=== PATIENT | female | born 1960 | race Caucasian/White ===

== ENCOUNTER 2021-03-22 15:02 | Emergency (ER) | payer BC ==
--- NOTE | 2021-03-22 16:07 | RAD REPORT ---
EXAM DESCRIPTION: RAD - Chest Single View - 03/22/2021 4:00 pm CLINICAL HISTORY: CHEST PAIN Chest pain. COMPARISON: No comparisons FINDINGS: Portable technique limits examination quality. The lungs are grossly clear. The heart is normal in size. No displaced fractures. IMPRESSION: No acute intrathoracic process suspected.
[2021-03-22 16:14] LABS: Absolute Lymphocytes (CBC) 1.2 K/uL (0.7-4.9); Basophils % 0.8 % (0-1.3); Hematocrit 42.6 % (36.0-45.0); Lymphocytes % 18.6 % (15.3-44.8); MPV 10.6 fL (7.6-11.3); RBC Red Blood Cell Count 4.84 M/uL (3.86-4.86)
[2021-03-22 16:20] LABS: Protime INR 0.99
[2021-03-22] MEDS ORDERED: NA CHLORIDE 0.9% 1,000 ML ONE (16:32)
[2021-03-22 16:40] LABS: ALT/SGPT 31 U/L (12-78); AST/SGOT 9 U/L (15-37); Albumin 4.1 g/dL (3.4-5.0); Alkaline Phosphatase 96 U/L (45-117); BUN Blood Urea Nitrogen 16 mg/dL (7-18); Bicarbonate 25 mmol/L (21-32); Bilirubin Direct < 0.1 mg/dL (0-0.2); Bilirubin Total 0.4 mg/dL (0.2-1.0); Glucose Level 98 mg/dL (74-106); Magnesium 2.3 mg/dL (1.8-2.4); NT PRO-BNP 36 pg/mL (<125); Potassium 3.8 mmol/L (3.5-5.1); Protein, Total 7.8 g/dL (6.4-8.2); Sodium Level 143 mmol/L (136-145); Troponin (Emerg Dept Use Only) < 0.02 ng/mL (0.0-0.045)
[2021-03-22 16:53] LABS: Urine Bacteria <20 /HPF (<20); Urine RBC <5 /HPF (NONE SEEN)
--- NOTE | 2021-03-22 17:15 | RAD REPORT ---
EXAM DESCRIPTION: CT - Head Brain Wo Cont - 03/22/2021 5:03 pm CLINICAL HISTORY: DIZZINESS Headache, drowsiness COMPARISON: No comparisons TECHNIQUE: All CT scans are performed using dose optimization technique as appropriate and may inclu de automated exposure control or mA/KV adjustment according to patient size. FINDINGS: No intracranial hemorrhage, hydrocephalus or extra-axial fluid collection.No areas of brai n edema or evidence of midline shift. The paranasal sinuses and mastoids are clear. The calvarium is intact. IMPRESSION: No acute intracranial abnormality.
[2021-03-22 19:09] LABS: Thyroid Stimulating Hormone 1.21 uIU/mL (0.360-3.740)
[2021-03-22 19:24] LABS: T3 Free 2.97 pg/mL (2.18-3.98)
--- NOTE | 2021-03-22 20:54 | EDPHYS ---
Physician Documentation [facility] Name: Salena Nichols Age: 60 yrs Sex: Female : 1960 Arrival Date: 03/22/2021 Time: 15:03 Bed 13 Private MD: ED Physician Kenia Moseley HPI: 03/22 15:35 This 60 yrs old Female presents to ER via Ambulatory with complaints of Chest cp Pain. 15:35 The patient or guardian reports chest pain that is located primarily in the anterior cp chest wall, bilaterally. 15:35 Onset: this morning. The patient presents with a history of heart racing. Context: The cp symptoms occur with light activity. Onset: The symptoms/episode began/occurred this morning. Duration: The patient or guardian reports multiple episodes, that are intermittent, with no pattern. The pain does not radiate. Associated signs and symptoms: Pertinent positives: dizziness, lightheaded. 15:35 Patient reports she was outside standing talking with a neighbor when she felt like her cp heart was racing, she became lightheaded and dizziness and started having tightness in her chest. Patient reports she went into the house and symptoms improved, but continues to have chest tightness and feeling like heart is racing. Historical: - Allergies: 15:53 Codeine; vg1 15:53 Hydrocodone-Acetaminophen; vg1 15:53 Steroids; vg1 - Home Meds: 15:53 None [Active]; vg1 - PMHx: 15:53 None; vg1 - PSHx: 15:53 Cholecystectomy; section; Hernia repair; Hysterectomy; vg1 - Immunization history:: Client reports receiving the 2nd dose of the Covid vaccine. - Social history:: Smoking status: Patient denies any tobacco usage or history of. ROS: 15:40 Constitutional: Negative for body aches, chills, fever, poor PO intake. cp 15:40 Cardiovascular: Positive for chest pain, palpitations, Negative for edema. cp 15:40 Eyes: Negative for injury, pain, redness, and discharge. cp 15:40 ENT: Negative for ear pain, sore throat, difficulty swallowing, difficulty handling secretions. 15:40 Respiratory: Negative for cough, shortness of breath, wheezing. 15:40 Abdomen/GI: Negative for abdominal pain, nausea, vomiting, and diarrhea, black/tarry stool, rectal bleeding. 15:40 Back: Negative for pain at rest, pain with movement. 15:40 : Negative for urinary symptoms. 15:40 Skin: Negative for cellulitis, rash. 15:40 Neuro: Positive for dizziness, Negative for altered mental status, headache, numbness, speech changes, syncope, weakness. 15:40 All other systems are negative. Exam: 15:40 Constitutional: The patient appears in no acute distress, alert, awake, cp non-diaphoretic, non-toxic, well developed, well nourished, anxious. 15:40 Head/Face: Normocephalic, atraumatic. cp 15:40 Eyes: Periorbital structures: appear normal, Pupils: equal, round, and reactive to light and accomodation, Extraocular movements: intact throughout, Conjunctiva: normal, no exudate, no injection, Sclera: no appreciated abnormality, Lids and lashes: appear normal, bilaterally. 15:40 ENT: External ear(s): are unremarkable, Nose: is normal, Mouth: Lips: moist, Oral mucosa: pink and intact, moist, Posterior pharynx: Airway: no evidence of obstruction, patent. 15:40 Neck: ROM/movement: is normal, is supple, without pain, no range of motions limitations, no nuchal rigidity. 15:40 Chest/axilla: Inspection: normal, Palpation: is normal, no crepitus, no tenderness. 15:40 Cardiovascular: Rate: normal, Rhythm: regular, Heart sounds: murmur, not appreciated, Edema: is not appreciated, JVD: is not appreciated. 15:40 Respiratory: the patient does not display signs of respiratory distress, Respirations: normal, no use of accessory muscles, no retractions, labored breathing, is not present, Breath sounds: are clear throughout, no decreased breath sounds, no stridor, no wheezing. 15:40 Abdomen/GI: Inspection: abdomen appears normal, Palpation: abdomen is soft and non-tender, in all quadrants. 15:40 Back: pain, is absent, ROM is normal. 15:40 Skin: no rash present. 15:40 Neuro: Orientation: to person, place \T\ time. Mentation: is normal, Cerebellar function: is grossly normal, Motor: moves all fours, strength is normal, Sensation: is normal. 16:10 ECG was reviewed by the Attending Physician. Vital Signs: 15:52 BP 126 / 70; Pulse 71; Resp 16; Temp 98.1; Pulse Ox 100% ; Weight 78.93 kg; Height 5 vg1 ft. 2 in. (157.48 cm); Pain 3/10; 16:51 BP 126 / 68 Supine; Pulse 65; Pulse Ox 99% on R/A; kd3 16:51 BP 146 / 62 Sitting; Pulse 88; Pulse Ox 98% on R/A; kd3 16:51 BP 138 / 78 Standing; Pulse 85; Pulse Ox 99% on R/A; kd3 17:25 BP 159 / 69; Pulse 68; Resp 16; Pulse Ox 98% on R/A; kd3 18:15 BP 131 / 68; Pulse 69; Resp 17; Pulse Ox 99% on R/A; jt3 19:31 BP 129 / 72; Pulse 70; Resp 18; Pulse Ox 99% on R/A; ld1 20:26 BP 131 / 64; Pulse 55; Resp 18; Pulse Ox 100% on R/A; ld1 15:52 Body Mass Index 31.82 (78.93 kg, 157.48 cm) vg1 MDM: 15:50 Patient medically screened. cp 16:00 Differential diagnosis: abnormal EKG, acute myocardial infarction, acute pericarditis, cp anxiety, chest wall pain, arrythmia, dehydration, stress disorder, pericarditis, pleurisy, pneumonia, pneumothorax. 20:52 Data reviewed: vital signs, nurses notes, lab test result(s), EKG, radiologic studies, cp CT scan, plain films. 20:52 Test interpretation: by ED physician or midlevel provider: ECG, plain radiologic cp studies. Counseling: I had a detailed discussion with the patient and/or guardian regarding: the historical points, exam findings, and any diagnostic results supporting the discharge/admit diagnosis, lab results, radiology results, the need for outpatient follow up, a welder apprentice arc, to return to the emergency department if symptoms worsen or persist or if there are any questions or concerns that arise at home. 03/22 15:30 Order name: Basic Metabolic Panel; Complete Time: 18:22 ma2 03/22 19:57 Interpretation: Normal except: CL 111; GFR 46. cp 03/22 15:30 Order name: CBC with Diff; Complete Time: 16:23 ma2 03/22 15:30 Order name: LFT's; Complete Time: 18:22 ma2 03/22 15:30 Order name: Magnesium; Complete Time: 18:22 ma2 03/22 15:30 Order name: NT PRO-BNP; Complete Time: 18:22 ma2 03/22 15:30 Order name: PT-INR; Complete Time: 16:23 ma2 03/22 15:30 Order name: Troponin (emerg Dept Use Only); Complete Time: 18:22 ma2 03/22 15:30 Order name: XRAY Chest (1 view); Complete Time: 16:23 ma2 03/22 15:57 Order name: Urine Microscopic Only cp 03/22 15:57 Order name: Urine Microscopic Only; Complete Time: 18:22 EDMS 03/22 16:53 Order name: TSH; Complete Time: 19:57 cp 03/22 16:53 Order name: T3 Free; Complete Time: 19:57 cp 03/22 19:01 Order name: Troponin (emerg Dept Use Only) cp 03/22 15:30 Order name: EKG; Complete Time: 15:31 ma2 03/22 15:30 Order name: Cardiac monitoring; Complete Time: 16:24 ma2 03/22 15:30 Order name: EKG - Nurse/Tech; Complete Time: 16:24 ma2 03/22 15:30 Order name: IV Saline Lock; Complete Time: 16:24 ma2 03/22 15:30 Order name: Labs collected and sent; Complete Time: 16:24 ma2 03/22 15:30 Order name: O2 Per Protocol; Complete Time: 16:24 ma2 03/22 15:30 Order name: O2 Sat Monitoring; Complete Time: 16:24 ma2 03/22 15:57 Order name: Orthostatics; Complete Time: 16:53 cp 03/22 16:23 Order name: CT Head Brain wo Cont; Complete Time: 18:22 cp EC:10 Rate is 68 beats/min. Rhythm is regular. NV interval is normal. QRS interval is normal. cp QT interval is normal. T waves are Inverted in lead aVR. Interpreted by me. Reviewed by me. Administered Medications: 16:45 Drug: NS 0.9% 1000 ml Route: IV; Rate: 1 bolus; Site: right antecubital; kd3 Disposition Summary: 03/22/21 20:53 Discharge Ordered Location: Home cp Problem: new cp Symptoms: have improved cp Condition: Stable cp Diagnosis - Palpitations cp - Chest pain, unspecified cp - Dizziness and giddiness cp Followup: cp - With: Yohan León MD - When: 2 - 3 days - Reason: Recheck today's complaints Discharge Instructions: - Discharge Summary Sheet cp - Nonspecific Chest Pain, Adult cp - Dizziness cp - Palpitations cp - Aspirin and Your Heart cp Forms: - Medication Reconciliation Form cp - Thank You Letter cp - Antibiotic Education cp - Prescription Opioid Use cp Addendum: 03/27/2021 05:29 Co-signature as Attending Physician, Kenia Moseley MD Attestation: The patient's m a2 history, exam findings, diagnostics, and a summary of any interventions or procedures was reviewed in detail with Kenia Moseley MD. Signatures: Dispatcher [employer] EDMS Vinod Navarro PA PA cp Alzahri, Mohammad, MD MD ma2 Liz Laws RN RN vg1 Susana Pro kd3 Corrections: (The following items were deleted from the chart) 03/22 15:54 15:53 Allergies: No Known Allergies; vg1 vg1 15:57 15:57 UA MICROSCOPIC+U.LAB.BRZ ordered. EDWV EDMS
--- NOTE | 2021-03-22 20:54 | ER ---
Nurse's Notes [facility] Name: Salena Nichols Age: 60 yrs Sex: Female : 1960 Arrival Date: 03/22/2021 Time: 15:03 Bed 13 Private MD: Diagnosis: Palpitations;Chest pain, unspecified;Dizziness and giddiness Presentation: 03/22 15:52 Chief complaint: Patient states: Chest pain began today around 1230. Pt states pain vg1 radiates to Left arm, states Left arm tingling. Also stated 'heart feels like it is fluttering', shortness of breath, mid back pain and lightheaded. Denies NVD. Coronavirus screen: Vaccine status: Patient reports receiving the 2nd dose of the covid vaccine. Client denies travel out of the [place] in the last 14 days. Ebola Screen: Patient negative for fever greater than or equal to 101.5 degrees Fahrenheit, and additional compatible Ebola Virus Disease symptoms. Initial Sepsis Screen: Does the patient meet any 2 criteria? No. Patient's initial sepsis screen is negative. Does the patient have a suspected source of infection? No. Patient's initial sepsis screen is negative. Risk Assessment: Do you want to hurt yourself or someone else? Patient reports no desire to harm self or others. Onset of symptoms was March 22, 2021. 15:52 Method Of Arrival: Ambulatory vg1 15:52 Acuity: TURNER 3 vg1 Triage Assessment: 15:53 General: Appears in no apparent distress. uncomfortable, Behavior is calm, cooperative. vg1 Pain: Complains of pain in back and chest. Cardiovascular: Reports lightheadedness, palpitations, shortness of breath, Patient's skin is warm and dry. Chest pain radiates to left arm(s) back. Historical: - Allergies: 15:53 Codeine; vg1 15:53 Hydrocodone-Acetaminophen; vg1 15:53 Steroids; vg1 - Home Meds: 15:53 None [Active]; vg1 - PMHx: 15:53 None; vg1 - PSHx: 15:53 Cholecystectomy; section; Hernia repair; Hysterectomy; vg1 - Immunization history:: Client reports receiving the 2nd dose of the Covid vaccine. - Social history:: Smoking status: Patient denies any tobacco usage or history of. Screenin:05 Abuse screen: Denies threats or abuse. Denies injuries from another. Nutritional kd3 screening: No deficits noted. Tuberculosis screening: No symptoms or risk factors identified. Fall Risk None identified. IV access (20 points). Assessment: 17:01 Pain: Denies pain. kd3 17:01 Cardiovascular: Reports chest pain, lightheadedness, shortness of breath, since this kd3 morning Rhythm is sinus rhythm. 17:04 Neuro: No deficits noted. Respiratory: Reports shortness of breath on exertion pt kd3 currently denies sob o2 maintained above 90 on RA. 19:31 Reassessment: Patient appears in no apparent distress at this time. Patient and/or ld1 family updated on plan of care and expected duration. Pain level reassessed. Patient is alert, oriented x 3, equal unlabored respirations, skin warm/dry/pink. 20:26 Reassessment: Patient appears in no apparent distress at this time. Patient and/or ld1 family updated on plan of care and expected duration. Pain level reassessed. Patient is alert, oriented x 3, equal unlabored respirations, skin warm/dry/pink. Patient denies pain at this time. Vital Signs: 15:52 BP 126 / 70; Pulse 71; Resp 16; Temp 98.1; Pulse Ox 100% ; Weight 78.93 kg; Height 5 vg1 ft. 2 in. (157.48 cm); Pain 3/10; 16:51 BP 126 / 68 Supine; Pulse 65; Pulse Ox 99% on R/A; kd3 16:51 BP 146 / 62 Sitting; Pulse 88; Pulse Ox 98% on R/A; kd3 16:51 BP 138 / 78 Standing; Pulse 85; Pulse Ox 99% on R/A; kd3 17:25 BP 159 / 69; Pulse 68; Resp 16; Pulse Ox 98% on R/A; kd3 18:15 BP 131 / 68; Pulse 69; Resp 17; Pulse Ox 99% on R/A; jt3 19:31 BP 129 / 72; Pulse 70; Resp 18; Pulse Ox 99% on R/A; ld1 20:26 BP 131 / 64; Pulse 55; Resp 18; Pulse Ox 100% on R/A; ld1 15:52 Body Mass Index 31.82 (78.93 kg, 157.48 cm) vg1 ED Course: 15:03 Patient arrived in ED. ds1 15:44 Vinod Navarro PA is PHCP. cp 15:44 Kenia Moseley MD is Attending Physician. cp 15:53 Triage completed. vg1 15:53 Arm band placed on. vg1 16:00 XRAY Chest (1 view) In Process Unspecified. EDMS 16:46 Davis Flaherty, RN is Primary Nurse. jt3 17:03 CT Head Brain wo Cont In Process Unspecified. EDMS 17:05 Patient has correct armband on for positive identification. Bed in low position. Call kd3 light in reach. Side rails up X2. property assessment monitor on. Pulse ox on. NIBP on. 17:05 No provider procedures requiring assistance completed. Inserted saline lock: 20 gauge kd3 in right antecubital area, using aseptic technique. Patient maintains SpO2 saturation greater than 95% on room air. 19:52 Troponin (emerg Dept Use Only) Sent. ld1 20:52 Yohan León MD is Referral Physician. cp 21:13 IV discontinued, intact, bleeding controlled, No redness/swelling at site. ld1 Administered Medications: 16:45 Drug: NS 0.9% 1000 ml Route: IV; Rate: 1 bolus; Site: right antecubital; kd3 Outcome: 20:53 Discharge ordered by . cp 21:11 Patient left the ED. ld1 21:12 Discharged to home ambulatory, with family. ld1 21:12 Condition: stable 21:12 Discharge instructions given to patient, family, Instructed on discharge instructions, follow up and referral plans. Demonstrated understanding of instructions, follow-up care. Signatures: Dispatcher [employer] [facility] Radha Mcgrath ds1 Vinod Navarro PA PA cp Garcia, Victoria, RN RN vg1 Sanjuana Kramer RN RN ld1 Davis Flaherty, SHAMIR BARKSDALE jt3 Susana Pro kd3 Corrections: (The following items were deleted from the chart) 15:54 15:53 Allergies: No Known Allergies; vg1 vg1
[2021-03-22 23:01] VITALS: BP 126/70; TEMP 98.1; O2SAT 100
--- NOTE | 2021-03-24 20:42 | EKG ---
Test Date: 2021-03-22 Test Time: 16:04:05 Information Manager: BINDU MEASUREMENT RESULTS: Intervals: Rate: 68 LA: 122 QRSD: 86 QT: 406 QTc: 431 [place]: P: 62 LA: 122 QRS: 6 T: 64 INTERPRETIVE STATEMENTS: Normal sinus rhythm Normal ECG No previous ECG available for comparison Electronically Signed On 03-24-21 20:35:40 [employer]ITION [employer] by Yohan León
--- OUTSIDE RECORDS SUMMARY | 2021-03-25 19:44 | XMS REPORT | Continuity of Care Document ---
:1960 Author Organization [facility] t Address [address] [place] [address] Care Team Providers Name Role Phone Jorje Dover MD Primary Care Physician Jorje Dover MD Attending Clinician ALLISON RUIZ Attending Clinician Unavailable Allison Mayorga Attending Clinician Doctor Unassigned, Name Attending Clinician Unavailable Caleb Laws RN Attending Clinician Unavailable Jm EXERCISE EQUIPMENT SPECIALIST Attending Clinician Jm EXERCISE EQUIPMENT SPECIALIST Attending Clinician JM Attending Clinician Unavailable JORJE DOVER Attending Clinician Unavailable Mikael Garrett DO Attending Clinician Provider, Urgent Care Attending Clinician Unavailable Thuan BAIN Attending Clinician Unknown Attending Clinician Unavailable MATHEUS Attending Clinician Unavailable Payers Payer Name Policy Type Policy Number Effective Date Expiration Date S [facility] [id number] 2017 PPO/POS 00:00:00 Problems Condition Condition Condition Status Onset Resolution Last Treating Co mments Source Name Details Category Date Date Treatment Clinician Date Fatty Fatty Disease Active Univers liver liver 2-08 ity of 00:00: [address] Elevated Elevated Disease Active Unive rs liver liver 1-30 ity of enzymes enzymes 00:00: [address] Obesity Obesity Disease Active 2015-05 Univers (BMI (BMI 1-03 ity of 30-39.9) 30-39.9) 00:00: [place] 00 Medical Branch Postoperat Postoperat Disease Active 2015-05 U nivers mary anne mary anne 1-03 [place] abdominal abdominal [place] Hip pain, Hip pain, Problem Active Uni vers left left ity of [place] [facility] ans Rupture of Rupture of Problem Active U nivers left left ity of proximal proximal [place] hamstring hamstring Phys ici tendon, tendon, ans initial initial encounter encounter Allergies, Adverse Reactions, Alerts Allergy Allergy Status Severity Reaction(s) Onset Inactive Treating Comm ents Source Name Type Date Date Clinician TETANUS DRUG Active Swelling 2018-05 Univers AND INGREDI 1-18 ity of DIPHTHER 00:00: [place] 00 Medical TOXOIDS Branch Tetanus Propensi Active Swelling 2018-05 Minor Unive rs And ty to 1-18 local ity of Diphther adverse 00:00: reaction [place] ia reaction 00 Medical Toxoids s Branch Hydrocod Drug Active Nausea Univers one Intolera and/or 2-10 ity of nce Vomiting 00:00: [place] 00 Medical Branch Predniso Propensi Active Rash Univer s ne ty to 2-10 ity of adverse 00:00: [place] reaction 00 Medical s Branch HYDROCOD DRUG Active N/V Univers ONE INGREDI 2-10 ity of 00:00: [place] 00 Medical Branch PREDNISO DRUG Active Rash Univers NE INGREDI 2-10 ity of 00:00: [place] 00 Medical Branch Social History Social Habit Start Date Stop Date Quantity Comments Source Exposure to Not sure [facility] SARS-CoV-2 (event) Medica l Branch History [facility] [place] Alcohol Frequency Medical Branch History SDDE [facility] [place] Alcohol Std Drinks Medica l Branch History [facility] [place] Alcohol Binge Medical Bra [facility] Alcohol intake 2021-03-04 2021-03-04 0 /d [facility] 00:00:00 00:00:00 Medical Branch Alcohol Comment 2015-06-22 2015-06-22 Rarely [facility] 00:00:00 00:00:00 Medical Branch Tobacco use and 2015-06-22 2015-06-22 Never used [facility] exposure 00:00:00 00:00:00 Medical Branch Sex [birth year] [facility] [place] 00:00:00 00:00:00 Medical Branch Smoking Status Start Date Stop Date Source Never smoker [facility] Medical Branch Medications Ordered Filled Start Stop Current Ordering Indication Dosage Frequency Signature Comments Components Source Medication Medication Date Date Medication? Clinician (SIG) Name Name No known 2020-05 No Univers medications 0-23 ity of 13:48: [address] No known 2020-05 No Univers medications 0-23 ity of 13:48: [address] No known 2020-05 No Univers medications 0-23 ity of 13:48: [address] amoxicillin 2020-05- Yes [id number] 1{tbl} Take 1 Univers -clavulanat 0-23 11-03 tablet by it y of e 00:00: 04:59 mouth 2 [place] (AUGMENTIN) 00 :00 (two) Medical 875-125 mg times Branch per tablet daily for 10 days. amoxicillin 2020-05- Yes [id number] 1{tbl} Take 1 Univers -clavulanat 0-23 11-03 tablet by it y of e 00:00: 04:59 mouth 2 [place] (AUGMENTIN) 00 :00 (two) Medical 875-125 mg times Branch per tablet daily for 10 days. benzonatate 2019-05 Yes [id number] 200mg Take 1 Univers 200 mg 1-16 capsule by ity of capsule 00:00: mouth 3 [place] 00 (three) Medical times Branch daily as needed for Cough. benzonatate 2019-05 Yes [id number] 200mg Take 1 Univers 200 mg 1-16 capsule by ity of capsule 00:00: mouth 3 [place] [id number] (three) Medical times Branch daily as needed for Cough. benzonatate 2019-05 Yes [id number] 200mg Take 1 Univers 200 mg 1-16 capsule by ity of capsule 00:00: mouth 3 [place] 00 (three) Medical times Branch daily as needed for Cough. benzonatate 2019-05 Yes [id number] 200mg Take 1 Univers 200 mg 1-16 capsule by ity of capsule 00:00: mouth 3 [place] 00 (three) Medical times Branch daily as needed for Cough. benzonatate 2019-05- No [id number] 200mg Take 1 Univers 200 mg 1-16 10-23 capsule by ity of capsule 00:00: 00:00 mouth 3 [place] 00 :00 (three) Medical times Branch daily as needed for Cough. azithromyci 2020-0 Yes [id number] 500mg Take 1 Univers n 500 mg 2-04 tablet by ity of tablet 00:00: mouth [place] 00 daily. Medical Branch benzonatate 2020-0 Yes [id number] 200mg Take 1 Univers 200 mg 2-04 capsule by ity of capsule 00:00: mouth 3 (three) Medical times Branch daily as needed for Cough. azithromyci 2020-0 Yes [id number] 500mg Take 1 Univers n 500 mg 2-04 tablet by ity of tablet 00:00: mouth [place] 00 daily. Medical Branch benzonatate 2020-0 Yes [id number] 200mg Take 1 Univers 200 mg 2-04 capsule by ity of capsule 00:00: mouth 3 (three) Medical times Branch daily as needed for Cough. azithromyci 2020-0 Yes [id number] 500mg Take 1 Univers n 500 mg 2-04 tablet by ity of tablet 00:00: mouth [place] 00 daily. Medical Branch benzonatate 2020-0 Yes [id number] 200mg Take 1 Univers 200 mg 2-04 capsule by ity of capsule 00:00: mouth 3 (three) Medical times Branch daily as needed for Cough. azithromyci 2020-0 Yes [id number] 500mg Take 1 Univers n 500 mg 2-04 tablet by ity of tablet 00:00: mouth [place] 00 daily. Medical Branch benzonatate 2020-0 Yes [id number] 200mg Take 1 Univers 200 mg 2-04 capsule by ity of capsule 00:00: mouth 3 (three) Medical times Branch daily as needed for Cough. azithromyci 2020-0 Yes [id number] 500mg Take 1 Univers n 500 mg 2-04 tablet by ity of tablet 00:00: mouth [place] 00 daily. Medical Branch benzonatate 2020-0 Yes [id number] 200mg Take 1 Univers 200 mg 2-04 capsule by ity of capsule 00:00: mouth 3 (three) Medical times Branch daily as needed for Cough. azithromyci 2020-0 Yes [id number] 500mg Take 1 Univers n 500 mg 2-04 tablet by ity of tablet 00:00: mouth [place] 00 daily. Medical Branch benzonatate 2020-0 Yes [id number] 200mg Take 1 Univers 200 mg 2-04 capsule by ity of capsule 00:00: mouth 3 (three) Medical times Branch daily as needed for Cough. azithromyci 2020-0 Yes [id number] 500mg Take 1 Univers n 500 mg 2-04 tablet by ity of tablet 00:00: mouth [place] 00 daily. Medical Branch benzonatate 2020-0 Yes [id number] 200mg Take 1 Univers 200 mg 2-04 capsule by ity of capsule 00:00: mouth 3 (three) Medical times Branch daily as needed for Cough. azithromyci 2020-0 Yes [id number] 500mg Take 1 Univers n 500 mg 2-04 tablet by ity of tablet 00:00: mouth [place] 00 daily. Medical Branch benzonatate 2020-0 Yes [id number] 200mg Take 1 Univers 200 mg 2-04 capsule by ity of capsule 00:00: mouth 3 (three) Medical times Branch daily as needed for Cough. azithromyci 2020-0 Yes [id number] 500mg Take 1 Univers n 500 mg 2-04 tablet by ity of tablet 00:00: mouth 00 daily. Medical Branch benzonatate 2020-0 Yes [id number] 200mg Take 1 Univers 200 mg 2-04 capsule by ity of capsule 00:00: mouth (three) Medical times Branch daily as needed for Cough. azithromyci 2020-0 Yes [id number] 500mg Take 1 Univers n 500 mg 2-04 tablet by ity of tablet 00:00: mouth [place] 00 daily. Medical Branch benzonatate 2020-0 Yes [id number] 200mg Take 1 Univers 200 mg 2-04 capsule by ity of capsule 00:00: mouth (three) Medical times Branch daily as needed for Cough. azithromyci 2020-0 Yes [id number] 500mg Take 1 Univers n 500 mg 2-04 tablet by ity of tablet 00:00: mouth [place] 00 daily. Medical Branch benzonatate 2020-0 Yes [id number] 200mg Take 1 Univers 200 mg 2-04 capsule by ity of capsule 00:00: mouth 3 (three) Medical times Branch daily as needed for Cough. azithromyci 2020-0 Yes [id number] 500mg Take 1 Univers n 500 mg 2-04 tablet by ity of tablet 00:00: mouth [place] 00 daily. Medical Branch benzonatate 2020-0 Yes [id number] 200mg Take 1 Univers 200 mg 2-04 capsule by ity of capsule 00:00: mouth 3 [place] 00 (three) Medical times Branch daily as needed for Cough. azithromyci 2020- No [id number] 500mg Take 1 Univers n 500 mg 2-04 10-23 tablet by ity o f tablet 00:00: 00:00 mouth [place] 00 :00 daily. Medical Branch benzonatate 2020- No [id number] 200mg Take 1 Univers 200 mg 2-04 10-23 capsule by ity of capsule 00:00: 00:00 mouth 3 [place] 00 :00 (three) Medical times Branch daily as needed for Cough. oseltamivir 2019- No [id number] 75mg Take 1 Univers (TAMIFLU) 06-09 capsule by ity of 75 mg 00:00: 05:59 mouth 2 [place] capsule 00 :00 (two) Medical times Branch daily for 5 days. SERTRALINE 2018-05 Yes [id number] TAKE 1 U nivers 50 mg 2-23 TABLET BY ity of tablet 00:00: MOUTH [place] 00 EVERY DAY Medical Branch SERTRALINE 2018- Yes [id number] TAKE 1 U nivers 50 mg 2-23 TABLET BY ity of tablet 00:00: MOUTH [place] 00 EVERY DAY Medical Branch SERTRALINE 2018- Yes [id number] TAKE 1 U nivers 50 mg 2-23 TABLET BY ity of tablet 00:00: MOUTH [place] 00 EVERY DAY Medical Branch SERTRALINE 2019- Yes [id number] TAKE 1 U nivers 50 mg 2-23 TABLET BY ity of tablet 00:00: [facility] 00 EVERY DAY Medical Branch SERTRALINE 2019- Yes [id number] TAKE 1 U nivers 50 mg 2-23 TABLET BY ity of tablet 00:00: MOUTH [place] 00 EVERY DAY Medical Branch SERTRALINE 2019- Yes [id number] TAKE 1 U nivers 50 mg 2-23 TABLET BY ity of tablet 00:00: MOUTH [place] 00 EVERY DAY Medical Branch SERTRALINE 2018- Yes [id number] TAKE 1 U nivers 50 mg 2-23 TABLET BY ity of tablet 00:00: MOUTH [place] 00 EVERY DAY Medical Branch SERTRALINE 2018- Yes [id number] TAKE 1 U nivers 50 mg 2-23 TABLET BY ity of tablet 00:00: MOUTH [place] 00 EVERY DAY Medical Branch SERTRALINE 2018-05 Yes [id number] TAKE 1 U nivers 50 mg 2-23 TABLET BY ity of tablet 00:00: MOUTH [place] 00 EVERY DAY Medical Branch SERTRALINE 2018-05 Yes [id number] TAKE 1 U nivers 50 mg 2-23 TABLET BY ity of tablet 00:00: MOUTH [place] 00 EVERY DAY Medical Branch SERTRALINE 2018-05 Yes [id number] TAKE 1 U nivers 50 mg 2-23 TABLET BY ity of tablet 00:00: MOUTH [place] 00 EVERY DAY Medical Branch SERTRALINE 2018-05 Yes [id number] TAKE 1 U nivers 50 mg 2-23 TABLET BY ity of tablet 00:00: MOUTH [place] 00 EVERY DAY Medical Branch SERTRALINE 2018-05 Yes [id number] TAKE 1 U nivers 50 mg 2-23 TABLET BY ity of tablet 00:00: MOUTH [place] 00 EVERY DAY Medical Branch SERTRALINE 2018-05- No [id number] TAKE 1 Univers 50 mg 2-23 10-23 TABLET BY ity of tablet 00:00: 00:00 MOUTH [place] 00 :00 EVERY DAY Medical Branch hydrOXYzine 2018-05 Yes [id number] 25mg Take 1 Univers 25 mg 1-18 tablet by ity of tablet 00:00: mouth [place] 00 every 8 Medical (eight) Branch hours as needed for Itching. naproxen 2018-05 Yes [id number] 220mg Take 1 U nivers sodium 1-18 capsule by ity of (ALEVE) 220 00:00: mouth 2 [place] mg capsule 00 (two) Medical times Branch daily as needed (pain). hydrOXYzine 2018-05 Yes [id number] 25mg Take 1 Univers 25 mg 1-18 tablet by ity of tablet 00:00: mouth [place] 00 every 8 Medical (eight) Branch hours as needed for Itching. naproxen 2018-05 Yes [id number] 220mg Take 1 U nivers sodium 1-18 capsule by ity of (ALEVE) 220 00:00: mouth 2 [place] mg capsule 00 (two) Medical times Branch daily as needed (pain). hydrOXYzine 2018-05 Yes [id number] 25mg Take 1 Univers 25 mg 1-18 tablet by ity of tablet 00:00: mouth [place] 00 every 8 Medical (eight) Branch hours as needed for Itching. naproxen 2018-05 Yes [id number] 220mg Take 1 U nivers sodium 1-18 capsule by ity of (ALEVE) 220 00:00: mouth 2 [place] mg capsule 00 (two) Medical times Branch daily as needed (pain). hydrOXYzine 2018-05 Yes [id number] 25mg Take 1 Univers 25 mg 1-18 tablet by ity of tablet 00:00: mouth [place] 00 every 8 Medical (eight) Branch hours as needed for Itching. naproxen 2018-05 Yes [id number] 220mg Take 1 U nivers sodium 1-18 capsule by ity of (ALEVE) 220 00:00: mouth 2 [place] mg capsule 00 (two) Medical times Branch daily as needed (pain). hydrOXYzine 2018-05 Yes [id number] 25mg Take 1 Univers 25 mg 1-18 tablet by ity of tablet 00:00: mouth [place] 00 every 8 Medical (eight) Branch hours as needed for Itching. naproxen 2018-05 Yes [id number] 220mg Take 1 U nivers sodium 1-18 capsule by ity of (ALEVE) 220 00:00: mouth 2 [place] mg capsule 00 (two) Medical times Branch daily as needed (pain). hydrOXYzine 2018-05 Yes [id number] 25mg Take 1 Univers 25 mg 1-18 tablet by ity of tablet 00:00: mouth [place] 00 every 8 Medical (eight) Branch hours as needed for Itching. naproxen 2018-05 Yes [id number] 220mg Take 1 U nivers sodium 1-18 capsule by ity of (ALEVE) 220 00:00: mouth 2 [place] mg capsule 00 (two) Medical times Branch daily as needed (pain). hydrOXYzine 2018-05 Yes [id number] 25mg Take 1 Univers 25 mg 1-18 tablet by ity of tablet 00:00: mouth [place] 00 every 8 Medical (eight) Branch hours as needed for Itching. naproxen 2018-05 Yes [id number] 220mg Take 1 U nivers sodium 1-18 capsule by ity of (ALEVE) 220 00:00: mouth 2 [place] mg capsule 00 (two) Medical times Branch daily as needed (pain). hydrOXYzine 2018-05 Yes [id number] 25mg Take 1 Univers 25 mg 1-18 tablet by ity of tablet 00:00: mouth [place] 00 every 8 Medical (eight) Branch hours as needed for Itching. naproxen 2018-05 Yes [id number] 220mg Take 1 U nivers sodium 1-18 capsule by ity of (ALEVE) 220 00:00: mouth 2 [place] mg capsule 00 (two) Medical times Branch daily as needed (pain). hydrOXYzine 2018-05 Yes [id number] 25mg Take 1 Univers 25 mg 1-18 tablet by ity of tablet 00:00: mouth [place] 00 every 8 Medical (eight) Branch hours as needed for Itching. naproxen 2018-05 Yes [id number] 220mg Take 1 U nivers sodium 1-18 capsule by ity of (ALEVE) 220 00:00: mouth 2 [place] mg capsule 00 (two) Medical times Branch daily as needed (pain). hydrOXYzine 2018-05 Yes [id number] 25mg Take 1 Univers 25 mg 1-18 tablet by ity of tablet 00:00: mouth [place] 00 every 8 Medical (eight) Branch hours as needed for Itching. naproxen 2018-05 Yes [id number] 220mg Take 1 U nivers sodium 1-18 capsule by ity of (ALEVE) 220 00:00: mouth 2 [place] mg capsule 00 (two) Medical times Branch daily as needed (pain). hydrOXYzine 2018-05 Yes [id number] 25mg Take 1 Univers 25 mg 1-18 tablet by ity of tablet 00:00: mouth [place] 00 every 8 Medical (eight) Branch hours as needed for Itching. naproxen 2018-05 Yes [id number] 220mg Take 1 U nivers sodium 1-18 capsule by ity of (ALEVE) 220 00:00: mouth 2 [place] mg capsule 00 (two) Medical times Branch daily as needed (pain). hydrOXYzine 2018-05 Yes [id number] 25mg Take 1 Univers 25 mg 1-18 tablet by ity of tablet 00:00: mouth [place] 00 every 8 Medical (eight) Branch hours as needed for Itching. naproxen 2018-05 Yes [id number] 220mg Take 1 U nivers sodium 1-18 capsule by ity of (ALEVE) 220 00:00: mouth 2 [place] mg capsule 00 (two) Medical times Branch daily as needed (pain). hydrOXYzine 2018-05 Yes [id number] 25mg Take 1 Univers 25 mg 1-18 tablet by ity of tablet 00:00: mouth [place] 00 every 8 Medical (eight) Branch hours as needed for Itching. naproxen 2018-05 Yes [id number] 220mg Take 1 U nivers sodium 1-18 capsule by ity of (ALEVE) 220 00:00: mouth 2 [place] mg capsule 00 (two) Medical times Branch daily as needed (pain). hydrOXYzine 2018-05- No [id number] 25mg Take 1 Univers 25 mg 1-18 10-23 tablet by ity of tablet 00:00: 00:00 mouth [place] 00 :00 every 8 Medical (eight) Branch hours as needed for Itching. naproxen 2018-05- No [id number] 220mg Take 1 Univers sodium 1-18 10-23 capsule by ity of (ALEVE) 220 00:00: 00:00 mouth 2 [place] mg capsule 00 :00 (two) Medical times Branch daily as needed (pain). LORATADINE Yes [id number] TAKE 1 U nivers 10 mg 9-10 TABLET BY ity of tablet 00:00: MOUTH [place] 00 EVERY DAY Medical Branch LORATADINE 2019- No [id number] TAKE 1 Univers 10 mg 9-10 08-26 TABLET BY ity of tablet 00:00: 00:00 MOUTH [place] 00 :00 EVERY DAY Medical Branch LORATADINE 2019- No [id number] TAKE 1 Univers 10 mg 9-10 08-26 TABLET BY ity of tablet 00:00: 00:00 MOUTH [place] 00 :00 EVERY DAY Medical Branch LORATADINE 2019- No [id number] TAKE 1 Univers 10 mg 9-10 08-26 TABLET BY ity of tablet 00:00: 00:00 MOUTH [place] 00 :00 EVERY DAY Medical Branch AZELASTINE Yes [id number] INTILL 1 Univers 0.05 % 9- 9102 DROP IN ity of ophthalmic 00:00: BOTH EYES [place] solution 00 2 (TWO) Medical TIMES Branch DAILY. AZELASTINE 2019- No [id number] INTILL 1 Univers 0.05 % 01-16- 9102 DROP IN ity of ophthalmic 00:00: 00:00 BOTH EYES [place] solution 00 :00 2 (TWO) Medical TIMES Branch DAILY. AZELASTINE 2019- No [id number] INTILL 1 Univers 0.05 % 9-01-05 9102 DROP IN ity of ophthalmic 00:00: 00:00 BOTH EYES [place] solution 00 :00 2 (TWO) Medical TIMES Branch DAILY. AZELASTINE 2019- No [id number] INTILL 1 Univers 0.05 % 01-16 9102 DROP IN ity of ophthalmic 00:00: 00:00 BOTH EYES [place] solution 00 :00 2 (TWO) Medical TIMES Branch DAILY. estradiol Yes [id number] .5mg Take 1 U nivers 0.5 mg 6-05 tablet by ity of tablet 00:00: mouth [place] 00 daily. Medical Branch SERTraline Yes [id number] 50mg Take 1 U nivers 50 mg 6-05 tablet by ity of tablet 00:00: mouth [place] 00 daily. Medical Branch SERTraline Yes [id number] 50mg Take 1 U nivers 50 mg 6-05 tablet by ity of tablet 00:00: mouth [place] 00 daily. Medical Branch SERTraline Yes [id number] 50mg Take 1 U nivers 50 mg 6-05 tablet by ity of tablet 00:00: mouth [place] 00 daily. Medical Branch SERTraline Yes [id number] 50mg Take 1 U nivers 50 mg 6-05 tablet by ity of tablet 00:00: mouth [place] 00 daily. Medical Branch estradiol 2019- No [id number] .5mg Take 1 Univers 0.5 mg 6-05 - tablet by ity of tablet 00:00: 00:00 mouth [place] 00 :00 daily. Medical Branch estradiol 2019- No [id number] .5mg Take 1 Univers 0.5 mg 6-05 -26 tablet by ity of tablet 00:00: 00:00 mouth [place] 00 :00 daily. Medical Branch estradiol 2019- No [id number] .5mg Take 1 Univers 0.5 mg 6-05 08-26 tablet by ity of tablet 00:00: 00:00 mouth [place] 00 :00 daily. Medical Branch Immunizations Ordered Filled Immunization Date Status Comments [facility] e Immunization Name Name Td 2019-03-27 Completed University of 00:00:00 [facility] Td 2019-03-27 Completed University of 00:00:00 [facility] Td 2019-03-27 Completed University of 00:00:00 [facility] Td 2019-03-27 Completed University of 00:00:00 [place] [facility] Td 2019-03-27 Completed University of 00:00:00 [place] [facility] Td 2019-03-27 Completed University of 00:00:00 [place] [facility] Td 2019-03-27 Completed University of 00:00:00 [place] [facility] Td 2019-03-27 Completed University of 00:00:00 [place] [facility] Td 2019-03-27 Completed University of 00:00:00 [place] [facility] Td 2019-03-27 Completed University of 00:00:00 [place] [facility] Td 2019-03-27 Completed University of 00:00:00 [place] [facility] Td 2019-03-27 Completed University of 00:00:00 [place] [facility] Td 2019-03-27 Completed University of 00:00:00 [place] [facility] Td 2019-03-27 Completed University of 00:00:00 [place] [facility] Td 2019-03-27 Completed University of 00:00:00 [place] [facility] Td 2019-03-27 Completed University of 00:00:00 [place] [facility] Td 2019-03-27 Completed University of 00:00:00 [place] [facility] Td 2019-03-27 Completed University of 00:00:00 [facility] HEP B, Adult Dosage 2018-07-25 Completed Unive rsity of 00:00:00 [facility] Branch Hepatitis A Adult 2018-07-25 Completed Univers ity of 00:00:00 [facility] Branch HEP B, Adult Dosage 2018-07-25 Completed Unive rsity of 00:00:00 [facility] Hepatitis A Adult 2018-07-25 Completed Univers ity of 00:00:00 [facility] Branch HEP B, Adult Dosage 2018-07-25 Completed Unive rsity of 00:00:00 [facility] Branch Hepatitis A Adult 2018-07-25 Completed Univers ity of 00:00:00 [facility] Branch HEP B, Adult Dosage 2018-07-25 Completed Unive rsity of 00:00:00 [facility] Branch Hepatitis A Adult 2018-07-25 Completed Univers ity of 00:00:00 [facility] Branch HEP B, Adult Dosage 2018-07-25 Completed Unive rsity of 00:00:00 [facility] Branch Hepatitis A Adult 2018-07-25 Completed Univers ity of 00:00:00 [place] [facility] HEP B, Adult Dosage 2018-07-25 Completed Unive rsity of 00:00:00 [place] [facility] Hepatitis A Adult 2018-07-25 Completed Univers ity of 00:00:00 [place] [facility] HEP B, Adult Dosage 2018-07-25 Completed Unive rsity of 00:00:00 [place] [facility] Hepatitis A Adult 2018-07-25 Completed Univers ity of 00:00:00 [place] [facility] HEP B, Adult Dosage 2018-07-25 Completed Unive rsity of 00:00:00 [place] [facility] Hepatitis A Adult 2018-07-25 Completed Univers ity of 00:00:00 [place] [facility] HEP B, Adult Dosage 2018-07-25 Completed Unive rsity of 00:00:00 [place] [facility] Hepatitis A Adult 2018-07-25 Completed Univers ity of 00:00:00 [place] [facility] HEP B, Adult Dosage 2018-07-25 Completed Unive rsity of 00:00:00 [place] [facility] Hepatitis A Adult 2018-07-25 Completed Univers ity of 00:00:00 [place] [facility] HEP B, Adult Dosage 2018-07-25 Completed Unive rsity of 00:00:00 [place] [facility] Hepatitis A Adult 2018-07-25 Completed Univers ity of 00:00:00 [place] [facility] HEP B, Adult Dosage 2018-07-25 Completed Unive rsity of 00:00:00 [place] [facility] Hepatitis A Adult 2018-07-25 Completed Univers ity of 00:00:00 [place] [facility] HEP B, Adult Dosage 2018-07-25 Completed Unive rsity of 00:00:00 [place] [facility] Hepatitis A Adult 2018-07-25 Completed Univers ity of 00:00:00 [place] [facility] HEP B, Adult Dosage 2018-07-25 Completed Unive rsity of 00:00:00 [place] [facility] Hepatitis A Adult 2018-07-25 Completed Univers ity of 00:00:00 [place] [facility] HEP B, Adult Dosage 2018-07-25 Completed Unive rsity of 00:00:00 [place] [facility] Hepatitis A Adult 2018-07-25 Completed Univers ity of 00:00:00 [place] [facility] HEP B, Adult Dosage 2018-07-25 Completed Unive rsity of 00:00:00 [place] [facility] Hepatitis A Adult 2018-07-25 Completed Univers ity of 00:00:00 [place] [facility] HEP B, Adult Dosage 2018-07-25 Completed Unive rsity of 00:00:00 [place] [facility] Hepatitis A Adult 2018-07-25 Completed Univers ity of 00:00:00 [place] [facility] HEP B, Adult Dosage 2018-07-25 Completed Unive rsity of 00:00:00 [place] [facility] Hepatitis A Adult 2018-07-25 Completed Univers ity of 00:00:00 [place] [facility] HEP B, Adult Dosage 2018-07-25 Completed Unive rsity of 00:00:00 [place] [facility] Hepatitis A Adult 2018-07-25 Completed Univers ity of 00:00:00 [place] [facility] HEP B, Adult Dosage 2018-07-25 Completed Unive rsity of 00:00:00 [place] [facility] Hepatitis A Adult 2018-07-25 Completed Univers ity of 00:00:00 [place] [facility] HEP B, Adult Dosage 2018-07-25 Completed Unive rsity of 00:00:00 [place] [facility] Hepatitis A Adult 2018-07-25 Completed Univers ity of 00:00:00 [place] [facility] HEP B, Adult Dosage 2018-07-25 Completed Unive rsity of 00:00:00 [place] [facility] Hepatitis A Adult 2018-07-25 Completed Univers ity of 00:00:00 [place] [facility] HEP B, Adult Dosage 2018-06-27 Completed Unive rsity of 00:00:00 [place] [facility] Hepatitis A Adult 2018-06-27 Completed Univers ity of 00:00:00 [facility] HEP B, Adult Dosage 2018-06-27 Completed Unive rsity of 00:00:00 [facility] Hepatitis A Adult 2018-06-27 Completed Univers ity of 00:00:00 [facility] HEP B, Adult Dosage 2018-06-27 Completed Unive rsity of 00:00:00 [facility] Hepatitis A Adult 2018-06-27 Completed Univers ity of 00:00:00 [facility] HEP B, Adult Dosage 2018-06-27 Completed Unive rsity of 00:00:00 [facility] Hepatitis A Adult 2018-06-27 Completed Univers ity of 00:00:00 [facility] HEP B, Adult Dosage 2018-06-27 Completed Unive rsity of 00:00:00 [facility] Hepatitis A Adult 2018-06-27 Completed Univers ity of 00:00:00 [facility] HEP B, Adult Dosage 2018-06-27 Completed Unive rsity of 00:00:00 [facility] Hepatitis A Adult 2018-06-27 Completed Univers ity of 00:00:00 [facility] HEP B, Adult Dosage 2018-06-27 Completed Unive rsity of 00:00:00 [facility] Hepatitis A Adult 2018-06-27 Completed Univers ity of 00:00:00 [facility] HEP B, Adult Dosage 2018-06-27 Completed Unive rsity of 00:00:00 [facility] Hepatitis A Adult 2018-06-27 Completed Univers ity of 00:00:00 [facility] HEP B, Adult Dosage 2018-06-27 Completed Unive rsity of 00:00:00 [facility] Hepatitis A Adult 2018-06-27 Completed Univers ity of 00:00:00 [facility] HEP B, Adult Dosage 2018-06-27 Completed Unive rsity of 00:00:00 [facility] HEP B, Adult Dosage 2018-06-27 Completed Unive rsity of 00:00:00 [facility] Hepatitis A Adult 2018-06-27 Completed Univers ity of 00:00:00 [facility] Hepatitis A Adult 2018-06-27 Completed Univers ity of 00:00:00 [facility] HEP B, Adult Dosage 2018-06-27 Completed Unive rsity of 00:00:00 [facility] Hepatitis A Adult 2018-06-27 Completed Univers ity of 00:00:00 [facility] HEP B, Adult Dosage 2018-06-27 Completed Unive rsity of 00:00:00 [facility] Hepatitis A Adult 2018-06-27 Completed Univers ity of 00:00:00 [facility] HEP B, Adult Dosage 2018-06-27 Completed Unive rsity of 00:00:00 [facility] Hepatitis A Adult 2018-06-27 Completed Univers ity of 00:00:00 [facility] HEP B, Adult Dosage 2018-06-27 Completed Unive rsity of 00:00:00 [facility] Hepatitis A Adult 2018-06-27 Completed Univers ity of 00:00:00 [facility] HEP B, Adult Dosage 2018-06-27 Completed Unive rsity of 00:00:00 [facility] Hepatitis A Adult 2018-06-27 Completed Univers ity of 00:00:00 [facility] HEP B, Adult Dosage 2018-06-27 Completed Unive rsity of 00:00:00 [facility] Hepatitis A Adult 2018-06-27 Completed Univers ity of 00:00:00 [facility] HEP B, Adult Dosage 2018-06-27 Completed Unive rsity of 00:00:00 [facility] HEP B, Adult Dosage 2018-06-27 Completed Unive rsity of 00:00:00 [facility] Hepatitis A Adult 2018-06-27 Completed Univers ity of 00:00:00 [facility] Hepatitis A Adult 2018-06-27 Completed Univers ity of 00:00:00 [facility] HEP B, Adult Dosage 2018-06-27 Completed Unive rsity of 00:00:00 [facility] Hepatitis A Adult 2018-06-27 Completed Univers ity of 00:00:00 [facility] HEP B, Adult Dosage 2018-06-27 Completed Unive rsity of 00:00:00 [facility] Hepatitis A Adult 2018-06-27 Completed Univers ity of 00:00:00 [facility] HEP B, Adult Dosage 2018-06-27 Completed Unive rsity of 00:00:00 [facility] Hepatitis A Adult 2018-06-27 Completed Univers ity of 00:00:00 [facility] Influenza Virus 2018-03-07 Completed Universit y of Vaccine Quad .5 mL 00:00:00 [facility] Influenza Virus 2018-03-07 Completed Universit y of [facility] [place] .5 mL 00:00:00 [facility] Influenza Virus 2018-03-07 Completed Universit y of [facility] [place] .5 mL 00:00:00 [facility] Influenza Virus 2018-03-07 Completed Universit y of [place] .5 mL 00:00:00 [facility] Influenza Virus 2018-03-07 Completed Universit y of [facility] .5 mL 00:00:00 [facility] Influenza Virus 2018-03-07 Completed Universit y of [facility] [place] .5 mL 00:00:00 [facility] Influenza Virus 2018-03-07 Completed Universit y of [place] .5 mL 00:00:00 [facility] Influenza Virus 2018-03-07 Completed Universit y of [facility] .5 mL 00:00:00 [facility] Influenza Virus 2018-03-07 Completed Universit y of [facility] [place] .5 mL 00:00:00 [facility] Influenza Virus 2018-03-07 Completed Universit y of [facility] .5 mL 00:00:00 [facility] Influenza Virus 2018-03-07 Completed Universit y of [facility] .5 mL 00:00:00 [facility] Influenza Virus 2018-03-07 Completed Universit y of [facility] .5 mL 00:00:00 [facility] Influenza Virus 2018-03-07 Completed Universit y of [facility] .5 mL 00:00:00 [facility] Influenza Virus 2018-03-07 Completed Universit y of [facility] [place] .5 mL 00:00:00 [facility] Tdap 2015-06-22 Completed University of 00:00:00 [facility] Tdap 2015-06-22 Completed University of 00:00:00 [facility] Tdap 2015-06-22 Completed University of 00:00:00 [facility] Tdap 2015-06-22 Completed University of 00:00:00 [facility] Tdap 2015-06-22 Completed University of 00:00:00 [facility] Tdap 2015-06-22 Completed University of 00:00:00 [facility] TDAP 2015-06-22 Completed University of 00:00:00 [facility] TDAP 2015-06-22 Completed University of 00:00:00 [facility] TDAP 2015-06-22 Completed University of 00:00:00 [facility] Tdap 2015-06-22 Completed University of 00:00:00 [facility] TDAP 2015-06-22 Completed University of 00:00:00 [facility] TDAP 2015-06-22 Completed University of 00:00:00 [facility] TDAP 2015-06-22 Completed University of 00:00:00 [facility] TDAP 2015-06-22 Completed University of 00:00:00 [facility] TDAP 2015-06-22 Completed University of 00:00:00 [facility] TDAP 2015-06-22 Completed University of 00:00:00 [facility] Tdap 2015-06-22 Completed University of 00:00:00 [facility] TDAP 2015-06-22 Completed University of 00:00:00 [facility] TDAP 2015-06-22 Completed University of 00:00:00 [facility] Tdap 2015-06-22 Completed University of 00:00:00 [facility] Tdap 2015-06-22 Completed University of 00:00:00 [facility] Tdap 2015-06-22 Completed University of 00:00:00 [facility] Influenza Virus 2015-03-13 Completed Universit y of Vaccine 00:00:00 [facility] Influenza Virus 2015-03-13 Completed Universit y of Vaccine 00:00:00 [facility] Influenza Virus 2015-03-13 Completed Universit y of Vaccine 00:00:00 [facility] Influenza Virus 2015-03-13 Completed Universit y of Vaccine 00:00:00 [facility] Influenza Virus 2015-03-13 Completed Universit y of Vaccine 00:00:00 [facility] Influenza Virus 2015-03-13 Completed Universit y of Vaccine 00:00:00 [facility] Influenza Virus 2015-03-13 Completed Universit y of Vaccine 00:00:00 [facility] Influenza Virus 2015-03-13 Completed Universit y of Vaccine 00:00:00 [facility] Influenza Virus 2015-03-13 Completed Universit y of Vaccine 00:00:00 [facility] Influenza Virus 2015-03-13 Completed Universit y of Vaccine 00:00:00 [facility] Influenza Virus 2015-03-13 Completed Universit y of Vaccine 00:00:00 [facility] Influenza Virus 2015-03-13 Completed Universit y of Vaccine 00:00:00 [facility] Influenza Virus 2015-03-13 Completed Universit y of Vaccine 00:00:00 [facility] Influenza Virus 2015-03-13 Completed Universit y of Vaccine 00:00:00 [facility] Influenza Virus 2015-03-13 Completed Universit y of Vaccine 00:00:00 [facility] Influenza Virus 2015-03-13 Completed Universit y of Vaccine 00:00:00 [facility] Influenza Virus 2015-03-13 Completed Universit y of Vaccine 00:00:00 [facility] Influenza Virus 2015-03-13 Completed Universit y of Vaccine 00:00:00 [facility] Influenza Virus 2015-03-13 Completed Universit y of Vaccine 00:00:00 [facility] Influenza Virus 2015-03-13 Completed Universit y of Vaccine 00:00:00 [facility] Influenza Virus 2015-03-13 Completed Universit y of Vaccine 00:00:00 [facility] Influenza Virus 2015-03-13 Completed Universit y of Vaccine 00:00:00 [facility] Vital Signs Vital Name Observation Time Observation Value Comments Source Systolic blood 2021-03-04 18:26:00 133 mm[Hg] Univer sity of pressure [facility] Diastolic blood 2021-03-04 18:26:00 78 mm[Hg] Unive rsity of pressure [facility] Heart rate 2021-03-04 18:26:00 87 /min Universi ty of [facility] Body height 2021-03-04 18:26:00 157.5 cm Universi ty of [facility] Body weight 2021-03-04 18:26:00 79.697 kg Universi ty of [facility] BMI 2021-03-04 18:26:00 32.14 kg/m2 Universi ty of [facility] Oxygen saturation in 2021-03-04 18:26:00 98 /min University of Arterial blood by [facility] Pulse oximetry Branch Systolic blood 2020-03-28 23:08:00 143 mm[Hg] Univer sity of pressure [facility] Diastolic blood 2020-03-28 23:08:00 86 mm[Hg] Unive rsity of pressure [facility] Heart rate 2020-03-28 23:03:00 82 /min Universi ty of [facility] Body temperature 2020-03-28 23:03:00 36.06 Sydni Univ ersity of [facility] Respiratory rate 2020-03-28 23:03:00 20 /min Univ ersity of [facility] Body height 2020-03-28 23:03:00 157.5 cm Universi ty of [facility] Body weight 2020-03-28 23:03:00 77.111 kg Universi ty of [facility] BMI 2020-03-28 23:03:00 31.09 kg/m2 Universi ty of [facility] Oxygen saturation in 2020-03-28 23:03:00 98 /min University of Arterial blood by [facility] Pulse oximetry Branch Systolic blood 2020-03-28 23:08:00 143 mm[Hg] Univer sity of pressure [facility] Diastolic blood 2020-03-28 23:08:00 86 mm[Hg] Unive rsity of pressure [facility] Heart rate 2020-03-28 23:03:00 82 /min Universi ty of [facility] Body temperature 2020-03-28 23:03:00 36.06 Sydni Univ ersity of [facility] Respiratory rate 2020-03-28 23:03:00 20 /min Univ ersity of [facility] Body height 2020-03-28 23:03:00 157.5 cm Universi ty of [facility] Body weight 2020-03-28 23:03:00 77.111 kg Universi ty of [facility] BMI 2020-03-28 23:03:00 31.09 kg/m2 Universi ty of [facility] Oxygen saturation in 2020-03-28 23:03:00 98 /min University of Arterial blood by [facility] Pulse oximetry Branch Systolic blood 2019-06-16 22:35:00 139 mm[Hg] Univer sity of pressure [facility] Diastolic blood 2019-06-16 22:35:00 75 mm[Hg] Unive rsity of pressure [facility] Heart rate 2019-06-16 22:35:00 70 /min Universi ty of [facility] Body temperature 2019-06-16 22:35:00 36.61 Sydni Univ ersity of [facility] Body height 2019-06-16 22:35:00 157.5 cm Universi ty of [facility] Body weight 2019-06-16 22:35:00 83.462 kg Universi ty of [facility] Branch BMI 2019-06-16 22:35:00 33.65 kg/m2 Universi ty of [facility] Systolic blood 2019-06-16 22:35:00 139 mm[Hg] Univer sity of pressure [facility] Diastolic blood 2019-06-16 22:35:00 75 mm[Hg] Unive rsity of pressure [facility] Heart rate 2019-06-16 22:35:00 70 /min Universi ty of [facility] Body temperature 2019-06-16 22:35:00 36.61 Sydni Univ ersity of [facility] Body height 2019-06-16 22:35:00 157.5 cm Universi ty of [facility] Body weight 2019-06-16 22:35:00 83.462 kg Universi ty of [facility] BMI 2019-06-16 22:35:00 33.65 kg/m2 Universi ty of [facility] Body weight 2019-06-10 00:50:00 83.099 kg Universi ty of [facility] BMI 2019-06-10 00:50:00 33.51 kg/m2 Universi ty of [facility] Oxygen saturation in 2019-06-10 00:50:00 97 /min University of Arterial blood by [facility] Pulse oximetry Branch Systolic blood 2019-06-10 00:50:00 136 mm[Hg] Univer sity of pressure [facility] Diastolic blood 2019-06-10 00:50:00 69 mm[Hg] Unive rsity of pressure [facility] Heart rate 2019-06-10 00:50:00 75 /min Universi ty of [facility] Body temperature 2019-06-10 00:50:00 36.83 Sydni Univ ersity of [facility] Respiratory rate 2019-06-10 00:50:00 18 /min Univ ersity of [facility] Body height 2019-06-10 00:50:00 157.5 cm Universi ty of [facility] Systolic blood 2019-01-05 20:29:00 128 mm[Hg] Univer sity of pressure [facility] Diastolic blood 2019-01-05 20:29:00 74 mm[Hg] Unive rsity of pressure [facility] Heart rate 2019-01-05 20:29:00 66 /min Universi ty of [facility] Body temperature 2019-01-05 20:29:00 36.94 Sydni Univ ersity of [facility] Respiratory rate 2019-01-05 20:29:00 16 /min Univ ersity of [facility] Body height 2019-01-05 20:29:00 157.5 cm Universi ty of [facility] Body weight 2019-01-05 20:29:00 82.101 kg Universi ty of [facility] BMI 2019-01-05 20:29:00 33.11 kg/m2 Universi ty of [facility] Oxygen saturation in 2019-01-05 20:29:00 99 /min University of Arterial blood by [facility] Pulse oximetry Branch Procedures Procedure Date / Time Performing Clinician Source Performed CONSENT/REFUSAL FOR 2021-03-22 20:04:57 Doctor Unassigned, Unive [facility] DIAGNOSIS AND TREATMENT [facility] ASSIGNMENT OF BENEFITS 2020-10-07 14:36:01 [facility] ASSIGNMENT OF BENEFITS 2019-07-17 19:53:52 [facility] POCT FLU A AND B 2019-06-10 01:05:00 Jm Shaunna [facility] (MOLECULAR) [facility] POCT GRP A STREP 2019-06-10 01:04:00 Jm Shaunna [facility] (MOLECULAR) [facility] NO SHOW OR MISSED 2019-01-05 20:18:00 Doctor Alexandro Griffin ity [facility] APPOINTMENT POLICY [facility] ACKNOWLEDGEMENT Encounters Start End Encounter Admission Attending Care Care Encounter Source Date/Time Date/Time Type Type Clinicians Facility Department ID 2021-03-23 2021-03-23 Telephone Lexis [facility] 1.2.840.114 [id number] Univers 00:00:00 00:00:00 [facility] [id number] it y of [place] [id number] Kapil as SAI?BLEA [phone] [address] MEDICAL OFFICE BUILDING 2021-03-22 2021-03-22 Emergency X Lenin RUIZ [facility] ERT [id number] Univers 15:04:00 16:05:00 ity of [facility] 2021-03-22 2021-03-22 Emergency Lenin Ruiz [facility] [id number] Univers 15:04:00 16:05:00 Allison HOLLY [id number] i ty of [place] [id number] [place] [facility] [phone] [facility] desirae [address] 2021-03-22 2021-03-22 Orders Doctor ALVARADO 1.2.840.114 [id number] Univers 00:00:00 00:00:00 Only UnassignedSIMONE [id number] ity of [place] [facility] [id number] Kapil as [phone] [facility] desirae 009 Branch 2021-03-05 2021-03-05 Telephone JENNY Laws [id number] Univers 00:00:00 00:00:00 Nathalie NICHOLS [id number] i ty of [facility] [id number] Kapil as [phone] [facility] desirae 019 Branch 2021-03-04 2021-03-04 Urgent Comfort Oneal [facility] 1.2.840.114 [id number] Univers 13:22:30 13:42:30 Care Shaunna [facility] [id number] ity of [place] [id number] Kapil as Sai?Blea [phone] Mo dical kn [address] [facility] Office Building 2021-03-04 2021-03-04 Outpatient R [facility] [id number] Univers 13:20:00 13:20:00 [id number] ity [facility] 2021-03-04 2021-03-04 [facility] [id number] Univers 13:20:00 13:20:00 SHAUNNA ity [facility] 2020-10-07 2020-10-07 [facility] [id number] Univers 09:38:15 23:59:00 Encounter Jenna [place] [id number] ity of [id number] [id number] [facility] [address] 2020-10-07 2020-10-07 Outpatient R [facility] [id number] Univers 09:40:00 09:40:00 JENNA [id number] [facility] 2020-10-07 2020-10-07 Outpatient [facility] [id number] Univers 00:00:00 00:00:00 JENNA [facility] 2020-10-07 2020-10-07 Orders Doctor JENNY 1.2.840.114 [id number] Univers 00:00:00 00:00:00 Only Unassigned, SIMONE [id number] ity of [facility] [id number] Kapil as [phone] [facility] 009 Branch 2020-07-23 2020-07-23 Patient Gerry [facility] 1.2.840.114 [id number] Univers 00:00:00 00:00:00 Outreach Ari PRIMARY [id number] i ty of Mikael [facility] 4.2.7.2.686 [place] [phone] [address] 2020-03-28 2020-03-28 Urgent Provider, [facility] 1.2.840.114 [id number] Univers 16:45:33 17:05:33 Care Jenny [facility] [id number] ity of [place] [id number] Kapil as Professio [phone] [address] Office Building [facility] 2020-03-28 2020-03-28 Urgent Provider, [facility] [id number] 16:45:33 17:05:33 Care [facility]gent Health [id number] Care [place] [id number] Professio [phone] [address] 2020-03-28 2020-03-28 Outpatient R [facility] [id number] Univers 17:00:00 17:00:00 [id number] ity [facility] 2020-03-28 2020-03-28 Outpatient R [facility] [id number] Univers 17:00:00 17:00:00 ity of [facility] 2020-03-28 2020-03-28 Telephone [facility] 1.2.840.114 [id number] Univers 00:00:00 00:00:00 [facility] [id number] it y of [place] [id number] Kapil as Professio [phone] [address] Office [facility] 2020-03-28 2020-03-28 Telephone [facility] 1.2.840.114 [id number] 00:00:00 00:00:00 [facility] [id number] Edward [place] [id number] Professio [phone] [place] [address] Office Building One 2020-03-22 2020-03-22 Telephone [facility] 1.2.840.114 [id number] Univers 00:00:00 00:00:00 [facility] [id number] it y of [place] 4.2.7.2.686 Kapil as Professio [phone] [address] Office [facility] 2020-03-22 2020-03-22 Telephone [facility] 1.2.840.114 [id number] 00:00:00 00:00:00 Jenna [facility] [id number] [place] 4.2.7.2.686 Professio [phone] [place] [address] Office Building [facility] 2019-09-29 2019-09-29 [facility] 1.2.840.114 [id number] 00:00:00 00:00:00 Jenna [facility] [id number] [place] 4.2.7.2.686 Professio [phone] [place] [address] Office Building [facility] 2019-09-29 2019-09-29 [facility] 1.2.840.114 [id number] Univers 00:00:00 00:00:00 [facility] [id number] it y of [place] 4.2.7.2.686 Kapil as Professio [phone] Mo dical [address] Office [facility] 2019-07-17 2019-07-17 [facility] [id number] 13:56:00 23:59:00 Encounter Jenan [place] [id number] [place] 4.2.7.2.686 [place] [id number] [facility] 2019-07-17 2019-07-17 [facility] [id number] Univers 13:56:00 23:59:00 Encounter Jenna [place] [id number] ity of [place] 4.2.7.2.686 [place] [facility] [id number] [address] 2019-07-17 2019-07-17 [facility] [id number] Univers 14:00:00 14:00:00 JENNA [id number] [facility] 2019-07-17 2019-07-17 [facility] [id number] Univers 00:00:00 00:00:00 JENNA [facility] 2019-07-17 2019-07-17 Orders Doctor ALVARADO 1.2.840.114 [id number] 00:00:00 00:00:00 Only Unassigned, SIMONE 350.1.13.10 [facility] 4.2.7.2.686 [id number] 009 2019-07-17 2019-07-17 Orders Doctor JENNY 1.2.840.114 [id number] Univers 00:00:00 00:00:00 Only Unassigned, SIMONE [id number] ity of [place] [facility] 4.2.7.2.686 Kapil as [phone] [address] 2019-06-17 2019-06-17 [facility] 1.2.840.114 [id number] 00:00:00 00:00:00 [facility] [id number] [place] 4.2.7.2.686 Professio [phone] [place] [address] Office [facility] 2019-06-17 2019-06-17 [facility] 1.2.840.114 [id number] [facility] 00:00:00 00:00:00 [facility] [id number] it y of [place] 4.2.7.2.686 Kapil as Professio [phone] [address] Office [facility] 2019-06-16 2019-06-16 [facility] 1.2.840.114 [id number] 16:23:14 16:38:14 Visit [facility] [id number] [place] 4.2.7.2.686 Professio [phone] [place] [address] Office [facility] 2019-06-16 2019-06-16 [facility] 1.2.840.114 [id number] [facility] 16:23:14 16:38:14 Visit [facility] [id number] it y of [place] 4.2.7.2.686 Kapil as Professio [phone] [address] Office [facility] 2019-06-09 2019-06-09 Urgent JmShaunna [facility] 1.2.840.114 [id number] Univers 18:29:57 19:25:43 Care Unknown, [facility] Health [id number] ity of Surgical 4.2.7.2.686 Kapil as Specialti [phone] Me dical es [address] [facility] 2019-01-05 2019-01-05 Office H[place] 1.2.840.114 [id number] Univers 15:18:54 15:44:01 Visit [facility] [id number] it y of [place] 4.2.7.2.686 Kapil as Professio [phone] Mo dical nal [address] Office Building One 2019-01-05 2019-01-05 Orders Doctor JENNY 1.2.840.114 [id number] Univers 00:00:00 00:00:00 Only Unassigned, SIMONE [id number] ity of [facility] 4.2.7.2.686 Kapil as [phone] [facility] [address] 2017-04-25 2017-04-25 Appointmen CLIFTON JARVIS [facility] [id number] Univers 14:30:00 14:30:00 t; AMPARO JARVIS M.D. at [facility] Results Test Description Test Time Test Comments Results Result Comments Source POCT FLU A AND B (MOLECULAR) 2019-06-10 01:15:00 Test Item Value Reference Range Interpretation Comme nts POCT INFLUENZA A (test code = Negative Negative - Negative 3840) POCT INFLUENZA B (test code = Negative Negative - Negative 3841) JASBIR (test code = JASBIR) accurate development and interpretation of all internal controls Lab Interpretation (test code = Normal 56298-2) [facility] SpringsPOCT GRP A STREP (MOLECULAR)2019-06-10 01:14:00 Test Item Value Reference Range Interpretation Comments POCT GP A STREP (test Negative Negative - code = 05103-4) Negative JASBIR (test code = JASBIR) accurate development and interpretation of all internal controls Lab Interpretation Normal (test code = 17095-9) [facility] [place]
== END 2021-03-22 21:11 | disposition home or self-care (01) ==
LOC: ER 15:02
DX: R07.9 Chest pain, unspecified (principal); R00.2 Palpitations; R42 Dizziness and giddiness; Z88.6 Allergy status to analgesic agent; Z88.8 Allergy status to other drugs, medicaments and biological substances
CPT/HCPCS: 93005; 85025; 80048; 36415; 83735; 85610; 80076; 84443; 81015; 84484 ×2; 84481; 83880; 70450; 71045; 99285; J7030